=== PATIENT | male | born 1985 | race Caucasian/White ===

== ENCOUNTER 2020-07-04 05:59 | Day surgery (SDC) | payer BC ==
[2020-07-04] MEDS ORDERED: fentaNYL 100 MCG/2 ML SDV IV ONE ×3 (06:00→07:16)
[2020-07-04] MEDS ORDERED: Midazolam 1 MG/ML 2 ML SDV IV ONE ×3 (06:00→07:17)
[2020-07-04] MEDS ORDERED: fentaNYL 100 MCG/2 ML SDV ONE (06:12)
[2020-07-04] MEDS ORDERED: Midazolam 1 MG/ML 2 ML SDV ONE (06:12)
[2020-07-04] MEDS ORDERED: Dextrose 5%-0.45% NaCl 1,000 ML IV SCH (06:20)
--- NOTE | 2020-07-04 08:14 | OR ---
DATE: 07/04/2020 PROCEDURES: Esophagogastroduodenoscopy and multiple pinch biopsies. INSTRUMENT USED: [id number]-HQ190 Olympus video panendoscope. PREMEDICATIONS: No oral or topical anesthesia used. Fentanyl 100 mcg intravenous, Versed 2 mg intravenous. The procedure was done under pulse oximetry, BP recording, and teletypesetter monitor. INDICATION: The patient with known Crohn's disease, on therapy with persistent abdominal pain as well as postprandial bloating, unexplained and not responsive to medical measures. Esophagogastroduodenoscopy is performed for detection of any active erosive lesions, Sheriff esophagus and/or malignancy also under consideration, H pylori status to be determined. Evaluation to be done with reference to any involvement of the duodenum with Crohn's disease, endoscopic hemostasis therapy if needed. DESCRIPTION OF PROCEDURE: The scope was passed with ease. Adequate visualization of the esophagus was made from proximal to distal areas. No upper esophageal lesions identified. No distal esophageal stricture. No uphill or downhill esophageal varices. No Marleny-Mcduffie tear. No evidence of erosive esophagitis by [place] criteria. No esophageal polyp or tumor mass identified. Z-line was seen at around 40 cm distal to the oral verge, configuration consistent with grade 1 by ZAP classification. No proximal gastric varices noted. Gastric fundus examination by retroflexion showed no polypoid lesions. No gastric ulcer, malignant mass, or vascular ectasia identified. Duodenal bulb showed no ulcer. Visualized second part of the duodenum was unremarkable. Multiple pinch biopsies were taken from the 2nd part of the duodenum and sent for any histopathologic evidence of Crohn's disease. Multiple pinch biopsies were also taken from the gastric antrum and proximal body and sent for PyloriTek test for H. pylori and histopathology. No bleeding was noted from any of the visualized areas at the completion of the examination. Photographs were taken of duodenal bulb, gastric antrum, fundus, and distal esophagus. IMPRESSION: Normal study. The patient tolerated the procedure well. [facility] /[id number]
== END 2020-07-04 09:17 | disposition home or self-care (01) ==
LOC: DL.ENDO 05:59
PROVIDERS: ATTEND Internal Medicine Gastroenterology
DX: K29.50 Unspecified chronic gastritis without bleeding (principal); K50.90 Crohn's disease, unspecified, without complications; Z88.0 Allergy status to penicillin
CPT/HCPCS: 43239; 87077; J2250; J3010; J7042

== ENCOUNTER 2020-08-04 06:19 | Day surgery (SDC) | payer BC ==
[~2020-08-04 06:19] MED LIST: Dextrose 5%-0.45% NaCl 1,000 ML IV SCH
[2020-08-04] MEDS ORDERED: fentaNYL 100 MCG/2 ML SDV IV ONE ×7 (06:20→07:36)
[2020-08-04] MEDS ORDERED: Midazolam 1 MG/ML 2 ML SDV IV ONE ×8 (06:20→07:30)
[2020-08-04] MEDS ORDERED: fentaNYL 100 MCG/2 ML SDV ONE (06:21)
[2020-08-04] MEDS ORDERED: Midazolam 1 MG/ML 2 ML SDV ONE (06:21)
[2020-08-04] MEDS ORDERED: Sodium Chloride 0.9% 10 ML Syringe FLUSH PRN (07:27)
[2020-08-04] MEDS ORDERED: Dextrose 5%-0.45% NaCl 1,000 ML IV SCH (07:30)
--- NOTE | 2020-08-04 08:47 | OR ---
DATE: 08/04/2020 PROCEDURES: Total colonoscopy, chromoendoscopy with indigo carmine, and multiple pinch biopsies. INSTRUMENT USED: [id number]-H190DL Olympus video colonoscope. PREMEDICATIONS: Fentanyl 150 mcg intravenous, Versed 4 mg intravenous. The procedure was done under pulse oximetry, BP recording, and painter mirror. INDICATION: The patient with long-standing Crohn disease, on therapy, and previous surgical resection, and low grade dysplasia previously. Surveillance colonoscopic examination is done for detection of any polypoid lesions and removal, biopsies to be obtained for any evidence of dysplasia, endoscopic hemostasis therapy if needed. DESCRIPTION OF PROCEDURE: Initial rectal exam was unremarkable. Rigid anoscopy was normal. The colonoscope was passed with ease up to the cecum, ileocecal area showed area to be narrow preventing advancement to visualized terminal ileum. No bleeding was noted from any of the visualized areas at the commencement of the examination. The bowel preparation was found to be adequate, [place] scale 2 in all the regions, total score 6. No vascular ectasia. No large isolated ulcerations seen. No polyp or tumor mass identified. Prominent benign-appearing folds were noted at the ileocecal junction. NBI views were obtained, photographs were taken, multiple pinch biopsies were obtained and sent for histopathology. Indigo carmine staining was used to visualize the entire colon. Probing the proximal sides of folds and flexures using adequate distention and clearing up the stool material, withdrawal of the scope was made. Four-quadrant biopsies were taken at 10 cm distance apart from the cecum to rectum, tissues obtained were pooled to bags #1 cecum and ascending colon, #2 transverse colon, #3 descending colon, and #4 rectosigmoid. No bleeding was noted from any of the visualized areas at the completion of examination. IMPRESSION: Crohn disease. The patient tolerated the procedure well. [facility] /[id number]
== END 2020-08-04 10:10 | disposition home or self-care (01) ==
LOC: DL.ENDO 06:19
PROVIDERS: ATTEND Internal Medicine Gastroenterology
DX: K52.9 Noninfective gastroenteritis and colitis, unspecified (principal); K50.90 Crohn's disease, unspecified, without complications
CPT/HCPCS: 45380; J2250; J3010; J7042

== ENCOUNTER 2023-05-12 06:46 | Day surgery (SDC) | payer BC ==
[2023-05-12] MEDS ORDERED: Midazolam 1 MG/ML 2 ML SDV ONE (07:00)
[2023-05-12] MEDS ORDERED: Dextrose 5%-0.45% NaCl 1,000 ML IV SCH (07:00)
[2023-05-12] MEDS ORDERED: fentaNYL 100 MCG/2 ML SDV ONE (07:01)
[2023-05-12] MEDS ORDERED: fentaNYL 100 MCG/2 ML SDV IV ONE ×3 (08:12→08:23)
[2023-05-12] MEDS ORDERED: Midazolam 1 MG/ML 2 ML SDV IV ONE ×6 (08:13→08:18)
== END 2023-05-12 09:39 | disposition home or self-care (01) ==
LOC: DL.ENDO 06:46
PROVIDERS: ATTEND Internal Medicine Gastroenterology
DX: K52.89 Other specified noninfective gastroenteritis and colitis (principal); K52.9 Noninfective gastroenteritis and colitis, unspecified
CPT/HCPCS: J2250; J3010; J7042